=== PATIENT | male | born 1950 | race Caucasian/White ===

== ENCOUNTER 2021-09-04 10:07 | Day surgery (SDC) | payer OTHER, SELFPAY ==
[~2021-09-04] VITALS: Ht 177.8 cm; Wt 71.7 kg
[2021-09-04] MEDS ORDERED: ARTICAINE HCL/EPINEPHRINE 4%/1:200,000 BIT 1.7 ML CARTRIDGE IJ ONE (12:27)
[2021-09-04] MEDS ORDERED: NS IRRIG SOLN 1000 ML IR ONE (12:27)
[2021-09-04] MEDS ORDERED: NS 100 ML BAG ONE (12:27)
[2021-09-04 16:58] VITALS: BP_SYST 119
== END 2021-09-04 16:58 | disposition home or self-care (01) ==
LOC: SDS 10:07 → SMU 10:07 → UNDOADMIN 10:07 → EDBD 11:30 → EDSTATUS 11:30 → UNDODISIN 16:58 → SDS 16:58
PROVIDERS: ATTEND Dentist General Practice
DX: M27.2 Inflammatory conditions of jaws (principal); G43.909 Migraine, unspecified, not intractable, without status migrainosus; E11.9 Type 2 diabetes mellitus without complications; G47.33 Obstructive sleep apnea (adult) (pediatric); M06.9 Rheumatoid arthritis, unspecified; M89.8X0 Other specified disorders of bone, multiple sites; M26.603 Bilateral temporomandibular joint disorder, unspecified; K05.222 Aggressive periodontitis, generalized, moderate; K12.2 Cellulitis and abscess of mouth; Z88.0 Allergy status to penicillin; Z79.899 Other long term (current) drug therapy; Z20.822 Contact with and (suspected) exposure to COVID-19
CPT/HCPCS: 21215; 21248; 36415; 41826; 70140; 87426; C1713 ×2